=== PATIENT | female | born 1975 | race Caucasian/White ===

== ENCOUNTER 2016-12-13 06:32 | Inpatient (IN) | payer OTHER ==
[2016-12-12 14:49] VITALS: BMI 40.4
[~2016-12-13] VITALS: Ht 167.6 cm; Wt 113.0 kg
[2016-12-13] VITALS (22 sets, daily range): BP systolic 99–140; BP diastolic 60–91; PULSE 70–110; RESP 11–29; Ht 167.6 cm; Wt 113.0 kg
[~2016-12-13 06:32] MED LIST: CARI350T29 PO; DOCU-144 PO; HYDR-902 PO
[2016-12-13] MEDS ORDERED: LACTATED RINGER'S 1,000 ML IV* SCH (07:00)
[2016-12-13] MEDS ORDERED: CEFAZOLIN 2 GM/50 ML (PMX) 50 ML IVPB SCH (07:00)
[2016-12-13] MEDS ORDERED: ALPR0.5T PO (07:37)
--- NOTE | 2016-12-13 07:39 | CONS ---
DATE OF ADMISSION: 12/13/2016 DATE OF CONSULTATION: Scheduled date of surgery 12/13/2016. Dear Dr. Mora: Thank you very much for allowing me to participate in the care of Ms. Amaya. She is a charming 41-y ear-old female who is being brought in electively for management of lumbar spinal stenosis. She is scheduled for L5-S1 left-sided approach. PAST MEDICAL HISTORY: 1. Cervical spine osteoarthrosis/DJD. 2. Lumbar spinal stenosis. 3. Migraine syndrome, chronic. 4. Usual childhood diseases. 5. Diverticulosis coli. 6. History of diverticulitis. 7. Morbid obesity. 8. Status post right plantar fascial tendon release. ALLERGIES: SHE HAS NO KNOWN MEDICAL ALLERGIES. MEDICATIONS: 1. [place] p.r.n. 2. Soma p.r.n. 3. Bupropion XL 150 q.a.m. HABITS: She quit smoking in 2008. No alcohol, 1 to 2 cups of coffee per day. No recreational drug s. SOCIAL HISTORY: She was born in [facility] and raised here. She has 2 years of college [employer] experience. She was for 10 years. 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 She lives with her spouse and 2 daughters, 3 dogs and a pet cat. FAMILY HISTORY: Negative for coronary artery disease, positive for diabetes, positive for hypertens ion, positive for stroke. Negative for asthma, negative for glaucoma, positive for migraine, positi ve for colon cancer, positive for breast cancer, negative for anesthesia reactions. REVIEW OF SYSTEMS: HEAD AND EYES: Notable for 20 headache days per month and otherwise negative. ENT: Negative. RESPIRATORY: Negative. CARDIAC: Negative, although, she is not able to climb stairs with her back. GASTROINTESTINAL: Negative. She had negative colonoscopy in 2014. HEMATOLOGIC: Negative. UROLOGIC: Negative. GYNECOLOGIC: Negative. She is G3, P2, AB 1, with last menstrual cycle 11/30/2016. PSYCHIATRIC: Negative. MUSCULOSKELETAL: Notable for left-sided sciatica. ENDOCRINE: Negative. NEUROLOGIC: Notable for left-sided sciatica. GENERAL: Without note. PHYSICAL EXAMINATION: VITAL SIGNS: At the time of physical exam, she has a height of 5 feet 6 and 1/4 inches, weight 254. Blood pressure 130/74, pulse 80, temperature is 98.3, respirations 18. HEENT: MC/AT; PERRL, EOMI, anicteric, fundi are without note; tympanic membranes are without note; oropharynx demonstrates no lesions. NECK: Supple, with a midline trachea. There is no thyromegaly. RESPIRATORY: Clear to auscultation and percussion. CARDIAC: Demonstrates no JVD, a regular rate and rhythm without rubs, murmurs or gallops. ABDOMEN: Soft, nontender, active bowel sounds, no hepatosplenomegaly, no CVA tenderness, no hernias and no bruits. EXTREMITIES: Demonstrate no clubbing, cyanosis, or edema. There is no obvious muscle wasting. NEUROLOGIC: Nonfocal. LABORATORY DATA: Sodium 138, potassium 3.7, chloride 101, bicarbonate 29, BUN 11, creatinine 0.6, s ugar 95. White count 8.8, hemoglobin 13.4, hematocrit 42.2, platelet count 357. Pro time 11.1 with an INR of 0.93, PTT is 24 seconds. Urinalysis 1.025, pH of 6, moderate blood. Dipstick is otherwi se negative. EKG demonstrates sinus rhythm at 74 with intervals of 0.14, 0.08, 0.40, 30 degree axis , normal morphology. Chest x-ray is unremarkable. ASSESSMENT AND PLAN: Preoperative medical consultation prior to elective lumbar spinal surgery. At this time, I find Ms. Amaya to be an acceptable surgical candidate and concur with your plans to pr oceed with surgery. She is at average surgical risk as compared to her age-matched peers and should do well using all standard and routine anesthesia precautions. Using modified Shannon criteria, [place] is at average to below average surgical risk. As such, she should proceed directly. Respectfully yours, Dictated By: SHAYY MURRIETA MD JR/NTS Conf#: [id number] DID#: [id number] CC: KYLIE MORA MD;*EndCC*
--- NOTE | 2016-12-13 09:41 | HPN ---
Date/Time of Note Date/Time of Note DATE: 12/13/16 TIME: 09:41 Interval H&P Admission Note Pt. seen H&P reviewed: No system changes CARMELITA DICK PA-C Dec 13, 2016 09:41
[2016-12-13] MEDS ORDERED: THROMBIN 5000 UNIT VIAL ONE (09:56)
[2016-12-13] MEDS ORDERED: POLYMYXIN/BACITRACIN 1L IRRIG ONE (09:56)
[2016-12-13] MEDS ORDERED: CA CHLORIDE 10% 10 ML SYRINGE ONE (09:56)
[2016-12-13] MEDS ORDERED: SURGIFOAM POWDER 1 GM KIT ONE (09:56)
[2016-12-13] MEDS ORDERED: FENTAnyl 50 MCG/ML VIAL ONE ×2 (10:00→11:13)
[2016-12-13] MEDS ORDERED: AL HYDROX/MG HYDROX/SIMETH 30 ML CUP PO PRN (10:00)
[2016-12-13] MEDS ORDERED: HYDROCODONE/APAP (10/325) TAB PO PRN (10:00)
[2016-12-13] MEDS ORDERED: CEPASTAT LOZENGE MT PRN (10:00)
[2016-12-13] MEDS ORDERED: BISACODYL 10 MG SUPP PR PRN (10:00)
[2016-12-13] MEDS ORDERED: DIPHENHYDRAMINE 50 MG INJ IV PRN ×2 (10:00→11:00)
[2016-12-13] MEDS ORDERED: ONDANSETRON 4 MG INJ IV PRN ×2 (10:00→11:00)
[2016-12-13] MEDS ORDERED: ACETAMINOPHEN 325 MG TAB PO PRN (10:00)
[2016-12-13] MEDS ORDERED: HYDROmorphONE 1 MG/ML SYG IV PRN (10:00)
[2016-12-13] MEDS: CEFAZOLIN 1 GM/50 ML (PMX) 50 ML IVPB SCH ×2 (10:00→17:36)
[2016-12-13] MEDS ORDERED: NALOXONE (0.4 MG/ML) INJ IV PRN (10:00)
[2016-12-13] MEDS ORDERED: ZOLPIDEM 5 MG TAB PO PRN (10:00)
[2016-12-13] MEDS ORDERED: BUPIVACAINE 0.25%/EPI (SDV) 30 ML INJ ONE (10:07)
[2016-12-13] MEDS ORDERED: ONDANSETRON 4 MG INJ ONE (10:13)
[2016-12-13] MEDS ORDERED: METOCLOPRAMIDE 10 MG INJ ONE (10:13)
[2016-12-13] MEDS ORDERED: PROPOFOL 20 ML ONE ×2 (10:13→10:50)
[2016-12-13] MEDS ORDERED: MIDAZOLAM 1 MG/ML 2 ML INJ ONE (10:13)
[2016-12-13] MEDS ORDERED: CEFAZOLIN 1 GM INJ ONE (10:15)
[2016-12-13] MEDS ORDERED: ACETAMINOPHEN 1000MG/100ML IV 100 ML ONE (10:15)
[2016-12-13] MEDS ORDERED: DEXAMETHASONE 4 MG/ML 1 ML INJ ONE (10:15)
[2016-12-13] MEDS ORDERED: HYDROmorphONE 2 MG/ML SYG ONE (10:33)
[2016-12-13] MEDS ORDERED: SUCCINYLCHOLINE CHLORIDE 100 MG/5 ML SYG IV ONE (10:50)
[2016-12-13] MEDS ORDERED: MEPERIDINE 25 MG INJ IV PRN (11:00)
[2016-12-13] MEDS ORDERED: HYDROmorphONE (0.2 MG/ML) 10ML SYG IV PRN ×3 (11:00)
[2016-12-13] MEDS ORDERED: METOCLOPRAMIDE 10 MG INJ IV PRN (11:00)
[2016-12-13] MEDS ORDERED: GLYCOPYRROLATE 1 MG INJ ONE (11:45)
[2016-12-13] MEDS ORDERED: NEOSTIGMINE 3 MG/3 ML SYRINGE ONE (11:45)
[2016-12-13] MEDS: HYDROmorphONE 0.2 MG/ML PCA IV SCH ×2 (12:05→17:42)
--- NOTE | 2016-12-13 12:32 | OPR ---
DATE OF OPERATION: 12/13/2016 PREOPERATIVE DIAGNOSES: 1. L5-S1 stenosis on the left with disk collapse and radiculopathy. 2. Morbid obesity with BMI 40. POSTOPERATIVE DIAGNOSES: 1. L5-S1 stenosis on the left with disk collapse and radiculopathy. 2. Morbid obesity with BMI 40. OPERATIONS PERFORMED: 1. Left L5-S1 decompression with decompression of left L5 and S1 nerve roots. 2. Use of operative microscope. 3. Use of C-arm fluoroscopy with interpretation without radiologist present. 5. Intraoperative neuromonitoring (1 hour). 6. Epidural injection via catheter. SURGEON: Santos Mora MD WINDOW TRIMMER APPRENTICE: BRIT Cui NEED FOR HEALTH AND WELLNESS MANAGER: During this spinal surgical procedure, my fire control assistant was used to retrac t and protect the spinal nerves and dural sac. My fire control assistant also employed the suction catheters to evacuate blood from the surgical field to improve visualization of the neural structures. The rajendra tant was medically necessary to facilitate the completion of the surgery in a safe and expeditious m omaira. State of [place] regulations, as well as hospital bylaws, preclude the use of non-license d health care personnel, such as operating room technicians, to perform these functions. FINDINGS: Neuromonitoring at the start of the case revealed left L5 amplitude down 60%, left S1 amp litude down 20%. At the end of the case nerve signals returned to normal. The patient had stenosis and significant disk collapse at L5-S1. ESTIMATED BLOOD LOSS: 30 mL. DRAINS: None. SPECIMENS: None. COMPLICATIONS OF PROCEDURES: None. ANESTHESIOLOGIST: Yamini Lynn MD TYPE OF ANESTHESIA: General. INDICATIONS FOR PROCEDURE: This is a 41-year-old female with left lumbosacral radiculopathy in the setting of disk collapse with resultant stenosis at L5-S1. She has failed nonoperative measures. T herefore, I recommend proceeding with the above-mentioned surgery. Preoperatively, I discussed the risks, benefits, and alternatives. She understood and wished to proceed. DESCRIPTION OF PROCEDURE IN DETAIL: The patient was identified in the preoperative holding area, [facility], taken to the operating room, where she was successfully placed under general a nesthesia. Neuromonitoring leads were placed, sequential compressive devices were applied. Neuromo nitoring was utilized during the procedure for 1 hour to include SSEP, MEP, and EMG. This was perfo rmed by [employer]. Start time was 10:45 a.m., closure time was 11:45 a.m. Latex precautions were utilized. The patient was placed in downward turned prone position over a Jamel frame. All bony prominences were well padded. The C-arm fluoroscope was used to identify the incision site. I anesthetized the skin, subcutaneous tissue, and paraspinal musculature with 0.25% epinephrine. I stephanie omalley made an incision over the L5-S1 level. Incision was taken down to dorsal fascia which was incis ed with Bovie cautery. I then subperiosteally dissected the left L5 and S1 lamina. The patient has morbid obesity with BMI of 40, and therefore, extended instruments had to be utilized. She had sig nificant collapse. I put a Kerrison under what was felt to be the L5 lamina, repeat lateral films o btained to confirm the correct levels. Once this was confirmed, microscope was brought in and a lef t-sided hemilaminotomy, partial medial facetectomy, and foraminotomy was performed at the L5-S1 leve l. Ligamentum flavum was then sharply dissected. I extended the compression, identified the left L 5 and S1 pedicles. I removed the ligamentum flavum and identified the L5 and S1 nerve roots, visual ized these and decompressed both nerve roots on the left. Once this was done, all nerve signals ret urned to normal. Valsalva maneuver was performed and there was no leak of CSF. The wound was then copiously irrigated with antibiotic impregnated saline. Hemostasis was achieved with bipolar cauter y and Surgifoam. The wound was dry and therefore, I elected not to place a drain. Epidural cathete r was passed through which I injected 100 mcg of fentanyl, and the catheter was pulled. Anesthesiol jennifer meme peripheral blood which was spun using the [employer] device. I took the platelet-poor plas ma mixed this with thrombin and injected this over the dura for hemostatic purposes. Retractors wer e removed and I closed the deep fascia with #1 Vicryl stitch. I closed subcutaneous tissue with a 2 -0 Vicryl stitch. Microscope was taken off the field. A 4-0 Monocryl closure was then performed. Dermabond was then applied. The patient was then awakened from anesthesia and taken to recovery jose daniel m in stable condition. Lap, sponge, and instrument counts were correct x2. There were no apparent complications during the procedure. The patient will be admitted to the [facility] for routine postoperative care to include pain c ontrol, neurovascular checks, antibiotics, and physical therapy. Dictated By: SANTOS JOYNER/KAM Conf#: [id number] DID#: [id number]
--- NOTE | 2016-12-13 12:58 | RADRPT ---
PROCEDURE: Intraoperative fluoroscopy. CLINICAL INDICATION: Intraoperative fluoroscopy during LUMBAR DECOMPRESSION L5-S1. TECHNIQUE: 3 spot intraoperative fluoroscopic images were provided. The images were reviewed on a high-resolution PACS workstation. COMPARISON: None available FINDINGS: Multiple spot intraoperative fluoroscopic views were provided during lumbar decompression. The imag es demonstrate italic instrumentation at the level of L5-S1. The total fluoroscopy time was 7.4 sec onds. IMPRESSION: 1. Multiple spot intraoperative fluoroscopic views during L5-S1 lumbar decompression were provided. 2. Please see operative report of the same day for further information. RPTAT: HGAS .Cristofer De La Cruz MD, MD Date Time Electronically viewed and signed by .Cristofer De La Cruz MD, on 12/13/2016 12:58 .S/
[2016-12-13] MEDS: D5W-0.45 NACL + KCL 20 MEQ 1,000 ML IV SCH ×2 (17:36→19:41)
--- NOTE | 2016-12-13 17:52 | CONS ---
Date/Time of Note Date/Time of Note DATE: 12/13/16 TIME: 17:50 Assessment/Plan Assessment/Plan Problems: (1) Status post lumbar laminectomy Status: Acute Comment: Immediately postop and while she has some pain she is doing well without evidence of untoward reactions or complications (2) Obesity (BMI 35.0-39.9 without comorbidity) Status: Chronic (3) Migraine, chronic, without aura Status: Chronic Comment: She is now agreeable to initiate treatment prophylactic therapy she will be placed on starter dose topiramate 25 mg nightly for this Qualifiers: Status migrainosus presence: without status migrainosus Intractability: intractable Qualified Code: G43.719 - Intractable chronic migraine without aura and without status migrainosus Consultation Date/Type/Reason Admit Date/Time Dec 13, 2016 at 06:32 Initial Consult Date 12/13/2016 Type of Consultation: Internal medicine Reason for Consultation Postoperative assistance with medical issues Referring Provider: KYLIE MAN MD 24 HR Interval Summary Constitutional: no complaints Detailed Summary Respiratory: no complaints Cardiovascular: no complaints Gastrointestinal: no complaints Genitourinary: no complaints Neurologic: no complaints Exam/Review of Systems Vital Signs Vitals Vital Signs Date Time Temp Pulse Resp B/P Pulse Ox O2 Delivery O2 Flow Rate FiO2 12/13/16 17:45 18 12/13/16 15:27 86 133/64 97 Room Air 2.0 12/13/16 12:28 98.8 Exam Constitutional: alert, oriented Neck: non-tender, supple Respiratory: clear to auscultation, normal air movement Cardiovascular: nl pulses, regular rate and rhythm Neurological: FREELANCE PHOTOGRAPHER II-XII intact, nl mental status, nl speech, nl strength, other (Moves lower extremities without inhibition) Medications Medications Current Medications Lactated Ringer's 1,000 ml @ 0 mls/hr Q0M IV* ; Start 12/13/16 at 07:00; Stop 12/13/16 at 23:00 Potassium Chloride/Dextrose/ Sod Cl (D5-1/2ns + KCl 20 Meq) 1,000 ml @ 100 mls/ hr Q10H IV Last administered on 12/13/16t 17:36; Admin Dose 100 MLS/HR; Start 12/13/16 at 09:41 Acetaminophen/ Hydrocodone Bitart ([place] (10/325)) 1 tab Q4H PRN PO PAIN LEVEL 1-5; Start 12/13/16 at 10:00 Acetaminophen/ Hydrocodone Bitart ([place] ()) 2 tab Q4H PRN PO PAIN LEVEL 6-10; Start 12/14/16 at 10:00 Hydromorphone HCl 0.2 mg 0.2 mg Q1H PRN IV BREAKTHROUGH PAIN; Start 12/13/16 at 10:00 Cefazolin Sodium (Ancef 1 Gm/50 ml (Pmx)) 50 ml @ 100 mls/hr Q8H IVPB Last administered on 12/13/16 17:36; Admin Dose 100 MLS/HR; Start 12/13/16 at 10:00 ; Stop 12/14/16 at 02:29 Ondansetron HCl (Zofran Inj) 4 mg Q6H PRN IV NAUSEA AND/OR VOMITING; Start at 10:00 Bisacodyl (Dulcolax Supp) 10 mg DAILY PRN GA CONSTIPATION; Start 12/13/16 at 10 :00 Docusate Sodium (Colace) 100 mg BID PO ; Start 12/13/16 at 21:00 Al Hydrox/Mg Hydrox/Simethicone (Mag-Al Plus) 15 ml Q6H PRN PO CONSTIPATION/ DYSPEPSIA; Start 12/13/16 at 10:00 Acetaminophen (Tylenol Tab) 650 mg Q4H PRN PO GODINEZ OR TEMP GREATER THAN 101.3F; Start 12/13/16 at 10:00 Carisoprodol (Soma) 350 mg TID PRN PO MUSCLE SPASMS; Start 12/13/16 at 10:00 Phenol (Cepastat Lozenge) 1 lozenge PRN PRN MT SORE THROAT; Start 12/13/16 at 10:00 Diphenhydramine HCl (Benadryl) 25 mg Q6H PRN IV ITCHING Last administered on t 12:12; Admin Dose 25 MG; Start 12/13/16 at 10:00 Naloxone HCl (Narcan) 0.2 mg Q2M PRN IV RR 8 BREATHS/MIN OR LESS; Start at 10:00 Miscellaneous Information 1. Hold RN PROVIDER RELATIONS at 1,000... RN PROVIDER RELATIONS IV ; Start 12/13/16 at 10: 00 Hydromorphone HCl (Dilaudid RN PROVIDER RELATIONS) RN PROVIDER RELATIONS to be started in PACU Q4PCA IV ; Start at 18:00 SHAYY MURRIETA MD Dec 13, 2016 17:52
[2016-12-13] MEDS ORDERED: HYDROmorphONE 0.2 MG/ML PCA IV SCH (18:00)
[2016-12-13] MEDS ORDERED: TOPIRAMATE 25 MG TAB PO SCH (21:00)
[2016-12-13] MEDS: DOCUSATE SODIUM 100 MG CAP PO SCH (21:32)
[2016-12-13] MEDS ORDERED: morphine 1 MG/ML 30 ML (PCA) IV SCH (23:30)
[2016-12-13] MEDS ORDERED: ALPRAZOLAM 0.5 MG TAB PO PRN (23:30)
[2016-12-14] VITALS: BP 112/62; PULSE 72; RESP 16
[2016-12-14] MEDS: HYDROCODONE/APAP (10/325) TAB PO PRN ×3 (01:44→15:34)
[2016-12-14] MEDS: CEFAZOLIN 1 GM/50 ML (PMX) 50 ML IVPB SCH (01:44)
[2016-12-14] MEDS ORDERED: KETOROLAC 30 MG INJ IV ONE (03:17)
[2016-12-14 04:00] VITALS: BP 111/68; PULSE 76; RESP 16
[2016-12-14] MEDS: HYDROmorphONE 0.2 MG/ML PCA IV SCH ×2 (04:03→09:17)
[2016-12-14 05:16] LABS: ADD SCAN DIFF NO
[2016-12-14] MEDS: D5W-0.45 NACL + KCL 20 MEQ 1,000 ML IV SCH ×2 (05:23→15:41)
[2016-12-14 05:31] LABS: BASOPHILS % 0.1 % (0.0-2.0); HEMATOCRIT 35.4 % (37.0-47.0); HEMOGLOBIN 11.8 g/dl (12.0-16.0); LYMPHOCYTES # 1.9 10^3/ul (0.8-2.9); LYMPHOCYTES % 9.2 % (15.0-51.0); MEAN CORPUSCULAR HEMOGLOBIN 30.4 pg (29.0-33.0); MEAN CORPUSCULAR HGB CONC 33.3 g/dl (32.0-37.0); MEAN CORPUSCULAR VOLUME 91.2 fl (82.0-101.0); MEAN PLATELET VOLUME 10.7 fl (7.4-10.4); MONOCYTE # 1.1 10^3/ul (0.3-0.9); MONOCYTES % 5.1 % (0.0-11.0); NEUTROPHIL # 17.6 10^3/ul (1.6-7.5); NEUTROPHILS % 85.1 % (39.0-77.0); PLATELET COUNT 318 10^3/UL (140-415); RED BLOOD COUNT 3.88 10^6/ul (4.20-5.40); RED CELL DISTRIBUTION WIDTH 12.4 % (11.5-14.5); WHITE BLOOD COUNT 20.8 10^3/ul (4.8-10.8)
[2016-12-14 05:39] LABS: POTASSIUM 3.4 mmol/L (3.5-5.1)
[2016-12-14 05:42] LABS: CREATININE 0.6 mg/dl (0.44-1.00)
[2016-12-14 05:43] LABS: CALCIUM 8.9 mg/dl (8.4-10.2); MAGNESIUM 1.8 mg/dl (1.7-2.5)
[2016-12-14 07:00] VITALS: BP 87/54; RESP 18
[2016-12-14] MEDS: CARISOPRODOL 350 MG TAB PO PRN ×2 (09:15→17:18)
[2016-12-14] MEDS: DOCUSATE SODIUM 100 MG CAP PO SCH (09:15)
--- NOTE | 2016-12-14 10:00 | PN ---
Date/Time of Note Date/Time of Note DATE: 12/14/16 TIME: 09:59 Assessment/Plan Lines/Catheters IV Catheter Type (from Nrsg): Peripheral IV Assessment/Plan Assessment/Plan Status post lumbar decompression The patient's back pain is improved. If she is cleared by physical therapy and is tolerating oral pain medications she may be discharged later today Subjective 24 Hr Interval Summary Complains of less back pain Exam/Review of Systems Vital Signs Vitals Vital Signs Date Time Temp Pulse Resp B/P Pulse Ox O2 Delivery O2 Flow Rate FiO2 12/14/16 07:00 97.9 68 18 87/54 99 12/14/16 04:00 Nasal Cannula 2.0 Intake and Output 12/13/16 12/13/16 12/14/16 15:00 23:00 07:00 Intake Total 1000 ml 500 ml 900 ml Output Total 20 ml 400 ml Balance 980 ml 100 ml 900 ml Exam Free Text/Dictation Neurovascularly intact Results Result Diagram: 12/14/16 0441 12/14/16 0441 KYLIE MAN MD Dec 14, 2016 10:00
--- NOTE | 2016-12-14 18:24 | DS ---
DATE OF ADMISSION: 12/13/2016 DATE OF DISCHARGE: 12/14/2016 ADMITTING DIAGNOSIS: Lumbar stenosis. DISCHARGE DIAGNOSIS: Lumbar stenosis. PROCEDURE: The patient was taken to the operating room on 12/13/2016 and underwent lumbar decompres tobias. HOSPITAL COURSE: The patient was admitted to the [facility] after undergoing the above procedu re. Her postoperative course was uncomplicated. By postoperative day 1, she was deemed stable for discharge with followup arranged with the undersigned. Dictated By: KYLIE JOYNER/KAM Conf#: [id number] DID#: [id number]
== END 2016-12-14 17:45 | disposition home or self-care (01) | DRG 516 ==
LOC: REC 06:32 → MS1 16:51
PROVIDERS: ADMIT Specialist; ATTEND Specialist
PROC: 01NB0ZZ Release Lumbar Nerve, Open Approach (ICD-10-PCS; principal; 2016-12-13 10:30)
DX: M51.17 Intervertebral disc disorders with radiculopathy, lumbosacral region (principal); Z68.41 Body mass index [BMI] 40.0-44.9, adult; E66.01 Morbid (severe) obesity due to excess calories; M48.07 Spinal stenosis, lumbosacral region; G43.709 Chronic migraine without aura, not intractable, without status migrainosus
CPT/HCPCS: 72100; 80048; 83735; 85025; 86999; 97116; 97163; 97530; J0131; J0330; J0690; J1100; J1170; J1200; J1885; J2175; J2250; J2270; J2405; J2710; J2765; J3010; J3480